=== PATIENT | male | born 1965 | race Caucasian/White ===

== ENCOUNTER → 2017-07-12 | Outpatient (CLI) | payer MEDICARE ==
[2013-09-25 14:37] VITALS: BMI 40.2
[~2017-07-12] MED LIST: ACET-1966 PO; AMIT-106 PO; ASPI-757 PO; BUPR-147 PO; DIAZ-305 PO; DOCU-416 PO; FEN75T TD; FENT-19 TD; FEXO180T78 PO; FLUT16SP20 NS; HYDR-415 PO; HYDR-4240 PO; HYDR-4309 PO; IBUP600T22 PO; LORA-630 PO; LOSA-57 PO; METH-278 PO; METH-542 PO; NAPR220C12 PO; NAPR500T75 PO; NEBI5TAB PO; ONDA4TAB PO; OXYC-373 PO; OXYC-865 PO; OXYC20TA99 PO; PER PO; PHEN200T32 PO; SIMV-54 PO; SULF-198 PO; TAMS0.4C25 PO; TRAM-420 PO; [UNRECOGNIZED DRUG - OTHER]
--- NOTE | 2017-07-12 17:02 | RADIOLOGY IMAGING REPORT ---
FACILITY: [facility] - [place] PATIENT NAME: Daniel Mcadams : 1965 MR: [id number] V: [id number] EXAM DATE: ORDERING PHYSICIAN: TIM GARSIA TECHNOLOGIST: Location: [facility] [place] Patient: Daniel Mcadams : 1965 Visit/Account:[id number] Date of Sevice: 07/12/2017 Exam type: SHOULDER ARTHROGRAM LEFT History: Chronic left shoulder pain Comparison: None. Findings: Informed consent was obtained. The patient's left shoulder was prepped and draped in usual sterile f ashion. Local anesthesia was accomplished with 1% lidocaine. Under fluoroscopic guidance a 22-gauge spinal needle was advanced into the anterior aspect of the left shoulder. Approximately 12 mL of a dilute suspension of Isovue-200 was injected under fluoroscopic guidance. Some of the contrast appea red to extravasate into the adjacent musculature although some did enter the joint space. A trial CT scan was obtained which confirmed inadequate distention of the left shoulder joint. The patient was then reprepped and draped in usual sterile fashion. Local anesthesia again accompli shed 1% lidocaine. A 22-gauge spinal needle was advanced percutaneously into the anterior aspect the left shoulder joint under fluoroscopic guidance. Approximately 13 mL of dilute Isovue-200 suspensio n was instilled into the left shoulder joint. The post arthrogram CT did demonstrate adequate contra st within the joint space. The total fluoroscopy dose area product was 2481.83 micro-Rosas per meter squared IMPRESSION: 1. Successful fluoroscopically guided left shoulder arthrogram Report Dictated By: Tess Mallory MD at 07/12/2017 4:51 PM Report E-Signed By: Tess Mallory MD at 07/12/2017 4:57 PM WSN:[id number]
--- NOTE | 2017-07-12 17:17 | RADIOLOGY IMAGING REPORT ---
FACILITY: [facility] - [place] PATIENT NAME: Daniel Mcadams : 1965 MR: [id number] V: [id number] EXAM DATE: ORDERING PHYSICIAN: TIM GARSIA TECHNOLOGIST: Location: [facility] Patient: Daniel Mcadams : 1965 Visit/Account:[id number] Date of Sevice: 07/12/2017 SHOULDER LEFT W CONTRAST COMPARISON: None. HISTORY: Left shoulder pain/rotator cuff tear. TECHNIQUE: Post arthrogram axial CT left shoulder with coronal and sagittal reformats. Initial inject ion was reportedly superficial, and therefore a second injection was performed under fluoroscopic maryuri dance. One of the following dose optimization techniques was utilized in the performance of this exam: auto mated exposure control; adjustment of the mA and/or kV according to patient size; or use of iterative reconstruction technique. Specific details can be referenced in the facility's radiology CT exam op erational policy. CONTRAST: A dilute iodinated contrast containing solution was injected into the left glenohumeral yesi int by another physician earlier today, please see that report for details.. FINDINGS: BONES : Mild left acromioclavicular joint osteoarthritis with undersurface spurring of the distal cl avicle. Type II acromion without subacromial spur or os acromiale. Normal glenohumeral joint alignmen t without significant degenerative change. Nonspecific cyst in the greater tubercle. Visualized left ribs are intact. Degenerative changes in the visualized spine. No acute fractures or bone lesions. FLUID: An iatrogenic left glenohumeral joint effusion is present, containing iodinated contrast. The second set of injection images, there is contrast throughout the supraspinatus tendon leading up to the insertion, beginning about 3.5 cm from the insertion, consistent with diffuse partial-thickness u ndersurface tearing of the supraspinatus tendon. The tendon is also abnormally thickened consistent w ith tendinosis. Mild thickening and small amount of iodinated contrast in the subscapularis tendon co nsistent with mild tendinosis, with contrast the tendon probably due to injection approach. There is no contrast in the subacromial/subdeltoid bursa. SOFT TISSUES: No rotator cuff muscle atrophy or edema. Contrast outlines the long head of the biceps tendon which has a normal CT arthrogram appearance. There is an abnormal contrast containing defect throughout the superior labrum from anterior to posterior consistent with a SLAP tear best seen coron al series 6 image 95. The rest of the labrum is considered to be intact. OTHER: Negative. IMPRESSION: 1. SLAP tear in the left superior labrum. 2. Supraspinatus tendinosis with diffuse partial-thickness undersurface tearing of the tendon throug hout the critical zone and insertion. 3. Mild subscapularis tendinosis. 4. Mild left AC joint osteoarthritis with undersurface spurring. Report Dictated By: Deric Lord at 07/12/2017 5:06 PM Report E-Signed By: Deric Lord at 07/12/2017 5:14 PM WSN:[email or web address]
== END ==
LOC: CT 02:08
PROVIDERS: ATTEND Orthopaedic Surgery Hand Surgery
DX: M19.012 Primary osteoarthritis, left shoulder (principal); M75.102 Unspecified rotator cuff tear or rupture of left shoulder, not specified as traumatic
CPT/HCPCS: 23350

== ENCOUNTER → 2017-08-08 | Day surgery (SDC) | payer MEDICARE ==
[2013-09-25 14:37] VITALS: Ht 175.3 cm; Wt 149.7 kg
[~2017-08-08] VITALS: Ht 175.3 cm; Wt 149.7 kg
[~2017-08-08] MED LIST changes: +LIDOCAINE/SOD BICARB 8.4% SYR ID ONE; +NORMOSOL R SOLN(*) 1000 ML BAG 1,000 ML IV PRN
--- NOTE | 2017-08-08 14:10 | RADIOLOGY IMAGING REPORT ---
FACILITY: [facility] PATIENT NAME: Daniel Mcadams : 1965 MR: [id number] V: [id number] EXAM DATE: ORDERING PHYSICIAN: TIM GARSIA TECHNOLOGIST: Location: [facility] Patient: Daniel Mcadams : 1965 Visit/Account:[id number] Date of Sevice: 08/08/2017 Left shoulder MRI was attempted but could not be performed due to patient's body habitus. No images w ere obtained. Report Dictated By: Anthony Oliver at 08/08/2017 2:05 PM Report E-Signed By: Anthony Oliver at 08/08/2017 2:06 PM WSN:[id number]
== END ==
LOC: OR 01:09
PROVIDERS: ATTEND Orthopaedic Surgery Hand Surgery
DX: M75.102 Unspecified rotator cuff tear or rupture of left shoulder, not specified as traumatic (principal)